=== PATIENT | male | born 1970 | race Caucasian/White ===

== ENCOUNTER 2017-04-15 14:15 | Emergency (ER) | payer BC ==
[~2017-04-15] VITALS: Ht 180.3 cm; Wt 90.7 kg
[2017-04-15 15:02] LABS: *BILIRUBIN,URIN NEGATIVE (NEGATIVE); *BLOOD, URINE NEGATIVE (NEGATIVE); *COLOR,URINE YELLOW (YELLOW); *KETONES,URINE 1+ (NEGATIVE); *PROTEIN,URINE NEGATIVE (NEGATIVE); *UROBILINOGEN,URINE 0.2 E.U./dl (NORMAL); LEUKOCYTE ESTERASE ,URINE NEGATIVE (NEGATIVE); NITRITE, URINE NEGATIVE (NEGATIVE); UGLUCOSE NEGATIVE (NEGATIVE)
[2017-04-15 15:10] LABS: *CLARITY,URINE HAZY (CLEAR)
[2017-04-15 15:14] LABS: CALCIUM OXALATE CRYSTALS,UR MANY /HPF (NONE SEEN); MUCUS,URINE MODERATE /LPF (0-FEW); WBC,URINE NONE SEEN /HPF (0-3)
[2017-04-15] MEDS ORDERED: HYDROMORPHONE 1 MG/1 ML DISP.SYRIN IV ONE (15:30)
[2017-04-15] MEDS ORDERED: ONDANSETRON 4 MG/2 ML VIAL IV ONE (15:30)
[2017-04-15] MEDS ORDERED: KETOROLAC TROMETHAMINE 15 MG INJ IV ONE (15:30)
[2017-04-15] MEDS ORDERED: IV NORMAL SALINE 1000 ML BAG IV ONE (15:30)
[2017-04-15] MEDS ORDERED: ONDANSETRON 4 MG/2 ML VIAL ONE (15:45)
[2017-04-15] MEDS ORDERED: KETOROLAC TROMETHAMINE 30 MG INJ ONE (15:45)
[2017-04-15] MEDS ORDERED: HYDROMORPHONE 4 MG/1 ML DISP.SYRIN ONE (15:46)
--- NOTE | 2017-04-15 16:50 | NUR ---
Patient discharged to home in stable conditon. Written and verbal after care instructions given. Patient verbalizes understanding of instructions.PT WALKS IN STEADY GAIT, PT WITH SO, PT NOT DRIVING. PT DENIES PAIN OR NAUSEA AT THIS TIME.
[2017-04-15 16:51] VITALS: BP 121/65
== END 2017-04-15 16:52 | disposition home or self-care (01) ==
LOC: ER 14:15
DX: N20.0 Calculus of kidney (principal); Z87.442 Personal history of urinary calculi
CPT/HCPCS: A4663; J1170; J1885; J2405